=== PATIENT | male | born 1980 | race Caucasian/White ===

== ENCOUNTER 2021-12-24 21:47 | Emergency (ER) | payer OTHER ==
[2021-12-25] MEDS ORDERED: IBU600 MG PO (02:24)
== END 2021-12-25 02:38 | disposition home or self-care (01) ==
LOC: ER1 21:47
DX: S92.341A Displaced fracture of fourth metatarsal bone, right foot, initial encounter for closed fracture (principal); J44.9 Chronic obstructive pulmonary disease, unspecified; F17.210 Nicotine dependence, cigarettes, uncomplicated; X50.9XXA Other and unspecified overexertion or strenuous movements or postures, initial encounter
CPT/HCPCS: 29515; 73610; 73630; 96372; 99283; J1885

== ENCOUNTER → 2021-12-29 | Outpatient (CLI) | payer OTHER ==
[~2021-12-29] MED LIST: IBU600 MG PO
== END ==
LOC: KOH-I 15:00
DX: S93.324A Dislocation of tarsometatarsal joint of right foot, initial encounter (principal); M79.671 Pain in right foot; S92.321A Displaced fracture of second metatarsal bone, right foot, initial encounter for closed fracture
CPT/HCPCS: 73700